=== PATIENT | male | born 1960 | race Two or more races ===

== ENCOUNTER 2025-03-21 21:58 | Emergency (ER) | payer MEDICAID, MEDICARE ==
[~2025-03-21] VITALS: Ht 177.8 cm; Wt 81.6 kg
[2025-03-21 22:54] LABS: PLATELET COUNT (AUTO) 217 K/uL (150-450); RED BLOOD CELL COUNT(AUTO) 4.32 MIL/uL (4.5-6.0); RED CELL DISTRIBUTION WIDTH 13.3 % (11.5-15.0); WHITE BLOOD COUNT (AUTO) 7.5 K/uL (4.3-11.0)
[2025-03-21 23:09] LABS: CALCIUM, SERUM 8.5 mg/dL (8.5-10.1); CREATININE 0.6 mg/dL (0.6-1.3); SODIUM SERUM 131 mmol/L (136-145); UREA NITROGEN, BLOOD 10 mg/dL (7-18)
[2025-03-21 23:11] LABS: APPEARANCE,URINE CLEAR (CLEAR); BLOOD, URINE NEGATIVE Ery/uL (NEGATIVE); LEUKOCYTE ESTERASE ,URINE NEGATIVE (NEGATIVE); NITRITE, URINE NEGATIVE (NEGATIVE); UGLUCOSE NEGATIVE (NEGATIVE)
[2025-03-21 23:15] LABS: AMPHETAMINE, URINE NEGATIVE (NEGATIVE); BARBITURATE, URINE NEGATIVE (NEGATIVE); BENZODIAZEPINE, URINE NEGATIVE (NEGATIVE); CANNABINOID, URINE NEGATIVE (NEGATIVE); COCCAINE, URINE NEGATIVE (NEGATIVE); OPIATE, URINE NEGATIVE (NEGATIVE)
[2025-03-21 23:20] LABS: ALCOHOL, BLOOD < 3 mg/dL (0-10); ASPARTATE AMINOTRANSFERASE 16 U/L (15-37); TOTAL PROTEIN, SERUM 6.9 g/dL (6.4-8.2)
[2025-03-22] MEDS ORDERED: LORAZEPAM INJ 2 MG/ML VIAL ONE (01:37)
[2025-03-22] MEDS: LORAZEPAM INJ 2 MG/ML VIAL IM ONE (01:44)
[2025-03-22] MEDS ORDERED: ACETAMINOPHEN 325 MG TABLET ONE (02:18)
[2025-03-22] MEDS: ACETAMINOPHEN 325 MG TABLET PO ONE (02:21)
[2025-03-22 02:54] VITALS: BP 136/70; TEMP 97.8; O2SAT 96
== END 2025-03-22 02:55 ==
LOC: ER 22:07
DX: R45.1 Restlessness and agitation (principal); R44.0 Auditory hallucinations; F03.90 Unspecified dementia, unspecified severity, without behavioral disturbance, psychotic disturbance, mood disturbance, and anxiety; G40.909 Epilepsy, unspecified, not intractable, without status epilepticus; I10 Essential (primary) hypertension; J44.9 Chronic obstructive pulmonary disease, unspecified; Z93.3 Colostomy status; Z87.39 Personal history of other diseases of the musculoskeletal system and connective tissue; Z20.822 Contact with and (suspected) exposure to COVID-19
CPT/HCPCS: 99284; 85025; 80048; 80076; 81003; 36415; 87426; 80143; 80320; 80307; 96372; J2060; G0480